=== PATIENT | female | born 1945 | race Caucasian/White ===

== ENCOUNTER → 2018-12-13 | Outpatient (CLI) | payer MEDICARE, OTHER ==
--- NOTE | 2018-12-14 16:50 | Diagnostic Imaging Report ---
INDICATION: Thyroid nodule. Thyroid sonography is performed in the routine fashion. There is no prior study for comparison. The right thyroid lobe measures 5.7 x 2.3 x 1.4 cm. Left thyroid lobe measures 5.0 x 2.3 x 1.2 cm. The thyroid gland is diffusely heterogeneous on both sides. There is a small nodule in the left thyroid lobe measuring 1.3 x 0.8 x 0.6 cm with isoechoic appearance. There is a small ill-defined nodule in the right thyroid lobe measuring 1.4 x 1.0 x 1.3 cm. There is additional hypoechoic nodule in the right thyroid lobe more superiorly measuring about 5 x 3 x 5 mm. IMPRESSION: Diffusely heterogeneous thyroid gland with bilateral nodular densities as above. Suggest follow-up as clinical warranted. Dictated by: Dictated on workstation # [id number]
== END ==
LOC: RAD FS 11:37
PROVIDERS: ATTEND Otolaryngology Otolaryngology/Facial Plastic Surgery
DX: E04.2 Nontoxic multinodular goiter (principal)
CPT/HCPCS: 76536